=== PATIENT | male | born 1995 | race Caucasian/White ===

== ENCOUNTER → 2017-05-15 | Outpatient (CLI) | payer OTHER ==
--- NOTE | 2017-05-15 19:07 | REP ---
Right shoulder series: Four views: History: Pain in the right shoulder times two weeks. No trauma. Findings: The right glenohumeral and acromioclavicular joints are normally aligned. Periarticular soft tissues are unremarkable. No rib abnormality is seen. Impression: Negative right shoulder views. Signed by Nato Salcido MD 05/16/2017 08:34 A
== END ==
LOC: M WUC 18:38
PROVIDERS: ATTEND Physician Assistant
DX: M25.511 Pain in right shoulder (principal)